=== PATIENT | male | born 1985 | race Caucasian/White ===

== ENCOUNTER 2022-11-10 18:53 | Emergency (ER) | payer SELFPAY ==
[~2022-11-10] VITALS: Ht 167.6 cm; Wt 68.0 kg
[2022-11-10 18:57] VITALS: BP 130/108
[2022-11-10] MEDS ORDERED: SODIUM CHLORIDE 0.9% 1,000 ML IV ONE (19:15)
[2022-11-10 19:53] LABS: CHLORIDE 104 mEq/L (98-107)
[2022-11-10 19:54] LABS: BASOPHILS % 0.5 % (0.0-2.0); EOSINOPHILS % 0.2 % (0.0-5.0); HEMATOCRIT. 48.5 % (42.0-52.0); HEMOGLOBIN. 16.3 g/dL (14.0-18.0); LYMPHOCYTES % 10.6 % (20.0-50.0); MEAN CORPUSCULAR HEMOGLOBIN 29.9 pg (28.0-32.0); MEAN CORPUSCULAR VOLUME 88.8 fL (80.0-94.0); MONOCYTES % 5.3 % (2.0-8.0); NEUTROPHILS % 83.4 % (40.0-76.0); RED BLOOD CELL COUNT 5.46 mill/uL (4.7-6.1); RED CELL DISTRIBUTION WIDTH 13.6 % (11.6-14.6)
[2022-11-10 19:56] LABS: ETHANOL BLOOD < 10 mg/dL
[2022-11-10 20:21] LABS: MEAN PLATELET VOLUME 9.2 fl (7.4-10.4); PLATELET 233 x1000/uL (130-400)
== END 2022-11-10 20:55 | disposition home or self-care (01) ==
LOC: ER 18:53
DX: F14.10 Cocaine abuse, uncomplicated (principal)
CPT/HCPCS: 36415; 80053; 80307; 80320; 80329; 82962; 85025; 99291; J7030; G0480